=== PATIENT | male | born 2000 | race Caucasian/White ===

== ENCOUNTER → 2023-10-22 13:27 | Outpatient (CLI) | payer OTHER, SELFPAY ==
--- NOTE | 2023-10-22 | DI.MRI.S_ITS ---
PROCEDURE: MR KNEE LT WO CON INDICATIONS: Pain in left knee TECHNIQUE: Noncontrast sagittal PD fast spin echo and T2 fast spin echo with fat saturation, sagittal 3-D FLASH with fat saturation; coronal T1 spin echo and PD fast spin echo with fat saturation, and axial PD fast spin echo with fat saturation through the knee. COMPARISON: None. FINDINGS: Image quality: Excellent. Anterior cruciate ligament: Intact. Posterior cruciate ligament: Intact. Medial collateral ligament: Intact. Lateral collateral ligament: Intact. Medial meniscus: Intact. Lateral meniscus: Intact. Medial and lateral tendons: The semimembranosus tendon insertions appear intact. Visualized portions of the pes anserinus tendons appear normal. Mild increased signal is seen at the insertion of the popliteus tendon onto the lateral femur. Iliotibial band appears normal. Anterior structures: Congenitally shallow and flattened trochlear groove is seen with mild lateral patellar subluxation. The tibial tubercle-trochlear groove distance measures approximately 1.8 cm. The quadriceps and patellar tendons appear intact. No edema in the infrapatellar fat pad. Bones and cartilage: No bone marrow contusions or fractures. Medial femorotibial cartilage: Intact. Lateral femorotibial cartilage: Intact. Patellofemoral cartilage: There is focal full-thickness cartilage loss at the inferior aspect of the median ridge of the patella. No definite loose intra-articular body is seen. Soft tissues: There is a small joint effusion. Small medial popliteal cyst. The musculature surrounding the knee is normal in bulk. IMPRESSION: 1. Focal full-thickness cartilage loss at the median ridge of the patella with mild subchondral cystic changes and edema. 2. 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 The tibial tubercle-trochlear groove distance is borderline at 1.8 cm. 3. No acute trabecular bone injury. Cruciate and collateral ligaments are intact. No meniscal tear is seen. 4. Increased signal is seen at the popliteus tendon insertion, which may be represent tendinosis or a remote prior injury. 5. Small joint effusion. Small medial popliteal cyst. Approved by: Atif Rebolledo M.D. on 10/22/2023 at 22:02
== END ==
DX: S83.012A Lateral subluxation of left patella, initial encounter (principal); M25.562 Pain in left knee; M25.462 Effusion, left knee; M71.22 Synovial cyst of popliteal space [Baker], left knee
CPT/HCPCS: 73721